=== PATIENT | male | born 1965 | race Caucasian/White ===

== ENCOUNTER 2017-05-09 05:57 | Day surgery (SDC) | payer BC ==
[2017-05-09] MEDS: LR 1,000 ML IV (06:35)
[2017-05-09 06:50] LABS: BEDSIDE GLUCOSE 186 MG/DL (70-105)
[2017-05-09] MEDS: BUPIVACAINE HCL 0.5% 30 ML VIAL As Ordered (07:34)
[2017-05-09] MEDS: LIDOCAINE 2% MDV 20 ML VIAL As Ordered (07:34)
[2017-05-09] MEDS ORDERED: fentaNYL 100 MCG/2 ML INJECTION (J3010) As Ordered (07:43)
[2017-05-09] MEDS ORDERED: MIDAZOLAM INJ 2 MG/2 ML VIAL (J2250) As Ordered (07:43)
[2017-05-09] MEDS ORDERED: PROPOFOL 200 MG/20 ML VIAL As Ordered ×3 (07:43→08:12)
[2017-05-09] MEDS: BACITRACIN PWD 50,000 UNITS VIAL As Ordered (08:16)
[2017-05-09] MEDS: NEOSPORIN GU IRRIG 20 ML VIAL As Ordered (08:20)
[2017-05-09] MEDS: dexameTHASONE 4 MG/ML 1ML VIAL (J1100) As Ordered (08:24)
[2017-05-09] MEDS ORDERED: LR 1,000 ML IV (09:00)
[2017-05-09] MEDS ORDERED: ONDANSETRON 4MG/2ML VIAL (J2405) IV (09:00)
[2017-05-09] MEDS ORDERED: PERCOCET 5MG/325MG TAB PO (09:00)
== END 2017-05-09 10:45 | disposition home or self-care (01) ==
LOC: M SDC 05:57
DX: M20.11 Hallux valgus (acquired), right foot (principal); E11.621 Type 2 diabetes mellitus with foot ulcer; L97.512 Non-pressure chronic ulcer of other part of right foot with fat layer exposed; E11.51 Type 2 diabetes mellitus with diabetic peripheral angiopathy without gangrene; E11.42 Type 2 diabetes mellitus with diabetic polyneuropathy; L30.9 Dermatitis, unspecified; R06.83 Snoring; G47.30 Sleep apnea, unspecified; Z79.84 Long term (current) use of oral hypoglycemic drugs; Z72.0 Tobacco use
CPT/HCPCS: 28296

== ENCOUNTER 2019-07-08 06:41 | Day surgery (SDC) | payer BC ==
[~2019-07-08] VITALS: Ht 177.8 cm; Wt 91.6 kg
[~2019-07-08 06:41] MED LIST: METF500T13 PO; METF850T4 PO; NS 1,000 ML IV SCH
[2019-07-08] MEDS ORDERED: propofoL 200 MG/20 ML VIAL As Ordered ONE (07:11)
[2019-07-08] MEDS ORDERED: LIDOCAINE 2% INJ 100 MG/5 ML SDV (FOR ANES.) As Ordered ONE (07:47)
--- NOTE | 2019-07-08 07:56 | ROOR ---
Patient Name: Krystian Colon Procedure Date: 07/08/2019 7:32 AM Date of : 1965 Age: 53 Room: [facility] Gender: Male Note Status: Finalized Procedure: Colonoscopy Indications: Screening for colorectal malignant neoplasm Providers: Trey WATTERS MD Referring MD: HERACLIO LINARES MD Requesting Provider: Medicines: Monitored Anesthesia Care Complications: No immediate complications. Procedure: Pre-Anesthesia Assessment: - The heart rate, respiratory rate, oxygen saturations, blood pressure, adequacy of pulmonary ventilation, and response to care were monitored throughout the procedure. The Colonoscope was introduced through the anus and advanced to the cecum, identified by appendiceal orifice and ileocecal valve. The colonoscopy was performed without difficulty. The patient tolerated the procedure well. The quality of the bowel preparation was good. Findings: The perianal and digital rectal examinations were normal. Three pedunculated and sessile polyps were found in the sigmoid colon. The polyps were 3 to 8 mm in size. These polyps were removed with a cold snare. Resection and retrieval were complete. To prevent bleeding after the polypectomy, one hemostatic clip was successfully placed. A 4 mm polyp was found in the rectum. The polyp was sessile. The polyp was removed with a cold snare. Resection and retrieval were complete. Internal hemorrhoids were found during retroflexion. The hemorrhoids were medium-sized. Retroflexion in the right colon was performed. The exam was otherwise without abnormality on direct and retroflexion views. Impression: - Three 3 to 8 mm polyps in the sigmoid colon, removed with a cold snare. Resected and retrieved. Clip was placed. - One 4 mm polyp in the rectum, removed with a cold snare. Resected and retrieved. - Internal hemorrhoids. - The examination was otherwise normal on direct and retroflexion views. Recommendation: - Repeat colonoscopy in 3 years for surveillance. Trey Watters MD Trey WATTERS MD 07/08/2019 7:55:59 AM Electronically signed by Trey WATTERS MD Number of Addenda: 0 Note Initiated On: 07/08/2019 7:32 AM Estimated Blood Loss: Estimated blood loss: none.
[2019-07-08 08:18] VITALS: BP 135/71
== END 2019-07-08 08:17 | disposition home or self-care (01) ==
LOC: M OPP 06:41
PROVIDERS: ATTEND Internal Medicine Gastroenterology
DX: Z12.11 Encounter for screening for malignant neoplasm of colon (principal); K64.8 Other hemorrhoids; K62.1 Rectal polyp; D12.5 Benign neoplasm of sigmoid colon; F17.210 Nicotine dependence, cigarettes, uncomplicated; Z79.899 Other long term (current) drug therapy

== ENCOUNTER 2022-10-12 06:36 | Day surgery (SDC) | payer BC ==
[~2022-10-12] VITALS: Ht 177.8 cm; Wt 93.9 kg
[~2022-10-12 06:36] MED LIST changes: +FARX1TAB3 PO; +GLIP5TAB20 PO; +JANU50TA8 PO; +NS 1,000 ML IV ONE; -NS 1,000 ML IV SCH; +OLME1TAB51 PO
[2022-10-12] MEDS ORDERED: propofoL 200 MG/20 ML VIAL As Ordered ONE (08:33)
[2022-10-12 09:05] VITALS: BP 119/69; O2SAT 100
== END 2022-10-12 09:07 | disposition home or self-care (01) ==
LOC: M OPP 06:36
PROVIDERS: ATTEND Internal Medicine Gastroenterology
DX: Z12.11 Encounter for screening for malignant neoplasm of colon (principal); D12.3 Benign neoplasm of transverse colon; D12.5 Benign neoplasm of sigmoid colon; K64.8 Other hemorrhoids; Z86.010 Personal history of colon polyps

== ENCOUNTER → 2024-07-14 | Outpatient (REF) | payer BC ==
[~2024-07-14] MED LIST changes: +GLIP-318 PO; -GLIP5TAB20 PO; -NS 1,000 ML IV ONE; -OLME1TAB51 PO; +OLME1TAB92 PO
== END ==
LOC: M SFHCDERM 17:52
PROVIDERS: ATTEND Nurse Practitioner Family
DX: C44.229 Squamous cell carcinoma of skin of left ear and external auricular canal (principal)

== ENCOUNTER → 2025-01-13 | Outpatient (CLI) | payer BC ==
[2025-01-13 13:31] LABS: ALT/SGPT 22 U/L (7.0-40); AST/SGOT 25 U/L (<34); CALCIUM LEVEL 10.0 MG/DL (8.5-10.1); CARBON DIOXIDE LEVEL 29 MMOL/L (20-31); CHLORIDE LEVEL 100 MMOL/L (98-107); CHOLESTEROL LEVEL 178 MG/DL (<200); CHOLESTEROL RISK RATIO 5.25 (<5); CREATININE FOR GFR 0.73 MG/DL (0.70-1.30); GLOMERULAR FILTRATION RATE > 90.0 (>56); LDL CHOLESTEROL 76.9 MG/DL (<100); NON-HDL-C 144.1 MG/DL; POTASSIUM SERUM 4.3 MMOL/L (3.5-5.1); SODIUM LEVEL 140 MMOL/L (136-145); TRIGLYCERIDES LEVEL 336 MG/DL (<150)
[2025-01-13 13:35] LABS: ESTIMATED AVERAGE GLUCOSE 148.0 MG/DL (60-110)
== END ==
LOC: M WUC 10:44
PROVIDERS: ATTEND Internal Medicine
DX: E78.5 Hyperlipidemia, unspecified (principal); E11.9 Type 2 diabetes mellitus without complications